=== PATIENT | female | born 1970 | race Caucasian/White ===

== ENCOUNTER 2016-09-16 15:18 | Emergency (ER) | payer OTHER ==
[2016-09-16 17:12] LABS: HEMOGLOBIN 12.6 gm/dl (12.3-15.3); RED BLOOD COUNT 4.98 M/UL (4.00-5.10); WHITE BLOOD COUNT 10.8 K/UL (4.5-11.0)
[2016-09-16 17:22] LABS: BUN/CREATININE RATIO 9 (0-10)
[2016-10-11] MEDS ORDERED: SUBOXONE 8 MG-1 EACH PO ×2 (07:12→07:13)
[2016-10-11] MEDS ORDERED: IBUPROFEN600 MG PO (09:52)
[2016-10-11] MEDS ORDERED: PERCOCET 7.5-31 EACH PO (09:53)
== END 2016-09-16 20:10 | disposition home or self-care (01) ==
LOC: ER1 15:18
PROVIDERS: Physician Assistant
DX: R10.30 Lower abdominal pain, unspecified (principal); N89.8 Other specified noninflammatory disorders of vagina; I10 Essential (primary) hypertension; F17.200 Nicotine dependence, unspecified, uncomplicated; Z79.899 Other long term (current) drug therapy
CPT/HCPCS: 36415; 80053; 81001; 84703; 85025; 87210; 99284; J7050; Q9962

== ENCOUNTER → 2016-10-05 | Outpatient (CLI) | payer OTHER ==
[~2016-10-05] MED LIST: IBUPROFEN600 MG PO; PERCOCET 7.5-31 EACH PO; SUBOXONE 8 MG-1 EACH PO
[2016-10-05 09:39] LABS: HEMOGLOBIN 12.6 gm/dl (12.3-15.3); RED BLOOD COUNT 5.03 M/UL (4.00-5.10); WHITE BLOOD COUNT 5.5 K/UL (4.5-11.0)
== END ==
LOC: OPSV2 08:30
PROVIDERS: Obstetrics & Gynecology
DX: Z01.812 Encounter for preprocedural laboratory examination (principal); R10.2 Pelvic and perineal pain
CPT/HCPCS: 36415; 81001; 85027

== ENCOUNTER → 2016-10-11 | Day surgery (SDC) | payer OTHER | END | disposition home or self-care (01) | LOC: OR 06:14 | PROVIDERS: Obstetrics & Gynecology | PROC: 0DNW4ZZ Release Peritoneum, Percutaneous Endoscopic Approach (ICD-10-PCS; principal; 2016-10-11 08:00) | PROC: 0UDB8ZZ Extraction of Endometrium, Via Natural or Artificial Opening Endoscopic (ICD-10-PCS; 2016-10-11 08:00) | DX: N73.6 Female pelvic peritoneal adhesions (postinfective) (principal); N92.0 Excessive and frequent menstruation with regular cycle; R10.2 Pelvic and perineal pain; M19.90 Unspecified osteoarthritis, unspecified site; G89.29 Other chronic pain; M54.9 Dorsalgia, unspecified; F41.9 Anxiety disorder, unspecified; F17.210 Nicotine dependence, cigarettes, uncomplicated; Z82.49 Family history of ischemic heart disease and other diseases of the circulatory system; Z83.3 Family history of diabetes mellitus; Z79.899 Other long term (current) drug therapy; Z90.49 Acquired absence of other specified parts of digestive tract; Z98.890 Other specified postprocedural states | CPT/HCPCS: 36415; 84703; J1100; J1885; J2250; J2405; J2710; J2795; J3010; J7120 ==

== ENCOUNTER 2017-01-11 13:34 | Emergency (ER) | payer OTHER | END 2017-01-11 14:56 | disposition home or self-care (01) | LOC: ER1 13:34 | DX: R51 Headache (principal); I10 Essential (primary) hypertension; Z90.49 Acquired absence of other specified parts of digestive tract; Z79.899 Other long term (current) drug therapy | CPT/HCPCS: 36415; 96374; 96375; 99283; J1200; J2765; J7030 ==

== ENCOUNTER 2021-06-03 21:02 | Emergency (ER) | payer OTHER ==
[2021-06-03 21:40] LABS: HEMOGLOBIN 14.4 gm/dl (12.3-15.3); RED BLOOD COUNT 4.91 M/UL (4.00-5.10); WHITE BLOOD COUNT 14.9 K/UL (4.5-11.0)
[2021-06-03 22:17] LABS: BUN/CREATININE RATIO 10 (0-10)
[2021-06-03] MEDS ORDERED: ZOFRAN ODT 4 MG4 MG SL (23:42)
[2021-06-03] MEDS ORDERED: ENDOCET 5-3251 EACH PO (23:42)
[2021-06-03] MEDS ORDERED: IBU800 MG PO (23:49)
== END 2021-06-04 00:05 | disposition home or self-care (01) ==
LOC: ER1 21:02
PROVIDERS: Emergency Medicine
DX: R10.31 Right lower quadrant pain (principal); R10.32 Left lower quadrant pain; R10.2 Pelvic and perineal pain; Z90.49 Acquired absence of other specified parts of digestive tract; Z79.899 Other long term (current) drug therapy
CPT/HCPCS: 80053; 81001; 83690; 84703; 85025; 87086; 96374; 96375; 99284; J1885; J2270; J2405; Q9967

== ENCOUNTER → 2021-06-13 | Outpatient (CLI) | payer OTHER ==
[~2021-06-13] MED LIST changes: +ENDOCET 5-3251 EACH PO; +IBU800 MG PO; +ZOFRAN ODT 4 MG4 MG SL
== END ==
LOC: KOH-I 13:22
DX: R13.10 Dysphagia, unspecified (principal)
CPT/HCPCS: 76536

== ENCOUNTER 2021-12-16 12:17 | Emergency (ER) | payer OTHER ==
[2021-12-16 13:03] LABS: HEMOGLOBIN 13.9 gm/dl (12.3-15.3); RED BLOOD COUNT 5.02 M/UL (4.00-5.10); WHITE BLOOD COUNT 12.6 K/UL (4.5-11.0)
[2021-12-16 13:30] LABS: BUN/CREATININE RATIO 13 (0-10)
== END 2021-12-16 16:04 | disposition home or self-care (01) ==
LOC: ER1 12:17
DX: R10.9 Unspecified abdominal pain (principal); F17.200 Nicotine dependence, unspecified, uncomplicated
CPT/HCPCS: 80053; 81001; 83690; 84703; 85025; 87086; 96374; 99284; J2270; J2405; Q9967